=== PATIENT | female | born 2000 | race Caucasian/White ===

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

== ENCOUNTER 2020-06-26 09:59 | Emergency (ER) | payer MEDICAID ==
[2020-06-26 10:35] LABS: BASOPHILS % (AUTO) 0.4 %; EOSINOPHILS # (AUTO) 0.1 10^3/uL (0.0-0.7); HGB - HEMOGLOBIN 14.6 g/dL (12.0-16.0); LYMPHOCYTES # (AUTO) 2.2 10^3/uL (1.5-3.5); LYMPHOCYTES % (AUTO) 27.3 %; MEAN CORPUSCULAR HEMOGLOBIN 29.2 pg (27.0-31.0); MEAN CORPUSCULAR HGB CONC 33.3 g/dL (32.0-36.0); MEAN CORPUSCULAR VOLUME 87.8 fL (81.0-99.0); MEAN PLATELET VOLUME 9.9 fL (7.9-10.8); MONOCYTES # (AUTO) 0.5 10^3/uL (0.0-1.0); MONOCYTES % (AUTO) 6.2 %; NEUTROPHILS # (AUTO) 5.3 10^3/uL (1.5-6.6); NEUTROPHILS % (AUTO) 64.9 %; PLT - PLATELET COUNT 283 10^3/uL (130-450); RED CELL DISTRIBUTION WIDTH 12.4 % (12.0-15.0); WHITE BLOOD COUNT 8.1 x10^3/uL (4.8-10.8)
[2020-06-26 10:42] LABS: BILIRUBIN,URINE NEGATIVE (NEGATIVE); GLUCOSE, URINE (UA) NEGATIVE (NEGATIVE); KETONES,URINE (UA) NEGATIVE (NEGATIVE); LEUKOCYTE ESTERASE, URINE NEGATIVE (NEGATIVE); NITRITE,URINE NEGATIVE (NEGATIVE); OCCULT BLOOD,URINE NEGATIVE (NEGATIVE); PROTEIN,URINE NEGATIVE (NEGATIVE); UROBILINOGEN,URINE 0.2 (NORMAL) E.U./dL (NORMAL)
[2020-06-26 10:44] LABS: ALBUMIN 4.4 g/dL (3.2-5.5); ALBUMIN/GLOBULIN RATIO 1.4 (1.0-2.2); BILIRUBIN,TOTAL 0.5 mg/dL (0.2-1.0); CALCIUM 9.2 mg/dL (8.5-10.3); CREATININE 0.7 mg/dL (0.4-1.0); TOTAL PROTEIN 7.6 g/dL (6.7-8.2)
[2020-06-26 10:46] LABS: HCG UR QUAL NEGATIVE
[2020-06-26 10:50] LABS: CLARITY,URINE CLEAR (CLEAR)
--- NOTE | 2020-06-26 11:01 | ED Physician Documentation ---
PD HPI ABD PAIN - Stated complaint Stated Complaint: LOW ABD PX - Chief complaint Chief Complaint: Abd Pain - History obtained from History obtained from: Patient - History of Present Illness Timing - onset: How many days ago (3) Timing - duration: Days (3) Timing - details: Gradual onset, Still present, Waxing and waning Pain level now: 5 Quality: Cramping, Aching, Sharp Location: RLQ Radiation: Right flank Improved by: Laying still Worsened by: Eating, Moving, Position, Palpation Associated symptoms: Nausea, Diarrhea, Loss of appetite. No: Vomiting Similar symptoms before: Has not had sx before Recently seen: Not recently seen - Additional information Additional information: 19 y/o female with 3 days of right lower quadrant abdominal pain has not had fever. She has had nausea without vomiting and she has had about 3 days of diarrhea as well. She has a reduced appetite. Review of Systems Constitutional: denies: Fever Eyes: denies: Decreased vision Ears: denies: Ear pain Nose: denies: Congestion Throat: denies: Oral lesions / sores, Sore throat Cardiac: denies: Chest pain / pressure, Palpitations Respiratory: denies: Dyspnea, Cough GI: reports: Abdominal Pain, Nausea, Diarrhea. denies: Vomiting : denies: Dysuria, Frequency PD PAST MEDICAL HISTORY - Past Medical History Psych: Depression, Anxiety, Post traumatic stress disorder - Past Surgical History Past Surgical History: No - Present Medications Home Medications: Ambulatory Orders Medication Instructions Recorded Confirmed traMADol [Ultram] 50 - 100 mg PO Q6H PRN #20 tab 06/26/20 - Allergies Allergies/Adverse Reactions: Allergies Allergy/AdvReac Type Severity Reaction Status Date / Time No Known Drug Allergies Allergy Verified 06/26/20 10:05 - Social History Does the pt smoke?: No Smoking Status: Never smoker Does the pt drink ETOH?: No Does the pt have substance abuse?: No - Immunizations Immunizations are current?: Yes - POLST Patient has POLST: No PD ED PE NORMAL - Vitals Vital signs reviewed: Yes (Normal) - General General: Alert and oriented X 3, No acute distress, Well developed/nourished - HEENT HEENT: Atraumatic, PERRL, EOMI - Neck Neck: Supple, no meningeal sign, No bony TTP - Cardiac Cardiac: RRR, No murmur - Respiratory Respiratory: No respiratory distress, Clear bilaterally - Abdomen Abdomen: Normal bowel sounds, Soft, Other (There is specific tenderness in the right lower quadrant with some guarding there is some rebound tenderness referred to the right lower quadrant as well. There is not tenderness to bimanual palpation of the right kidney LUQ is nontender she does have some referred tenderness to the RLQ ) - Back Back: No CVA TTP, No spinal TTP - Derm Derm: Normal color, Warm and dry, No rash - Extremities Extremities: No deformity, No edema - Neuro Neuro: Alert and oriented X 3, care transport nurse 2-12 intact, No motor deficit, No sensory deficit, Normal speech Eye Opening: Spontaneous Motor: Obeys Commands Verbal: Oriented GCS Score: 15 - Psych Psych: Normal mood, Normal affect Results - Vitals Vitals: Vital Signs - 24 hr 06/26/20 06/26/20 06/26/20 10:06 10:25 10:31 Temperature 36.5 C Heart Rate 97 93 76 Respiratory 20 18 16 Rate Blood Pressure 125/65 144/84 H 144/84 H O2 Saturation 99 100 100 06/26/20 06/26/20 13:27 13:30 Temperature Heart Rate 83 Respiratory 18 Rate Blood Pressure 158/93 H 131/88 H O2 Saturation 99 Oxygen O2 Source Room air - Labs Labs: Laboratory Tests 06/26/20 06/26/20 06/26/20 10:15 10:22 10:22 WBC 8.1 RBC 5.00 Hgb 14.6 Hct 43.9 MCV 87.8 MCH 29.2 MCHC 33.3 RDW 12.4 Plt Count 283 MPV 9.9 Neut # (Auto) 5.3 Lymph # (Auto) 2.2 [place] # (Auto) 0.5 Eos # (Auto) 0.1 Baso # (Auto) 0.0 Absolute Nucleated RBC 0.00 Nucleated RBC % 0.0 Sodium 141 Potassium 3.7 Chloride 105 Carbon Dioxide 26 Anion Gap 10.0 BUN 13 Creatinine 0.7 Estimated GFR (MDRD) 108 Glucose 93 Calcium 9.2 Total Bilirubin 0.5 AST 18 ALT 19 Alkaline Phosphatase 74 Total Protein 7.6 Albumin 4.4 Globulin 3.2 Albumin/Globulin Ratio 1.4 Lipase 42 Urine Color YELLOW Urine Clarity CLEAR Urine pH 7.0 Ur Specific Becker 1.015 Urine Protein NEGATIVE Urine Glucose (UA) NEGATIVE Urine Ketones NEGATIVE Urine Occult Blood NEGATIVE Urine Nitrite NEGATIVE Urine Bilirubin NEGATIVE Urine Urobilinogen 0.2 (NORMAL) Ur Leukocyte Esterase NEGATIVE Ur Microscopic Review NOT INDICATED Urine Culture Comments NOT INDICATED Urine HCG, Qual NEGATIVE - Rads (name of study) CT ab/pel with Radiology: Prelim report reviewed (Impression: 1. Appendix is normal. 2. Right ovary is mildly prominent relative to the left. Enlargement can be associated with ovarian torsion. If there is clinical concern for right ovarian torsion, pelvic ultrasound should be considered for further evaluation. ), Final report received (3. Prominent right lower quadrant mesenteric lymph nodes which do not meet pathologic size criteria. Findings nonspecific, but in appropriate clinical setting can represent mesenteric adenitis.), EMP read indepedently, See rad report PD MEDICAL DECISION MAKING - ED course Complexity details: reviewed old records, reviewed results, re-evaluated patient, considered differential, d/w patient ED course: 19-year-old female with acute right lower quadrant abdominal pain has tenderness on examination she has normal white blood cell count she is afebrile CT scan does not demonstrate evidence of appendicitis. There is concern for the ovary on the right side and an ultrasound of this is obtained demonstrating a collapsing right ovarian cyst with some free fluid in the pelvis. Her pain is attributed to ruptured ovarian cyst. She is administered Toradol intravenously as well as a liter of fluid following her IV contrast study. Departure - Departure Disposition: 01 Home, Self Care Clinical Impression: Cyst of ovary Qualifiers: Laterality: right Qualified Code(s): N83.201 - Unspecified ovarian cyst, right side Condition: Stable Instructions: ED Cyst Ovarian Follow-Up: Ilda Rosas MD [Primary Care Provider] - Ilda Tijerina MD [Provider Admit Priv/Credential] - Prescriptions: traMADol [Ultram] 50 - 100 mg PO Q6H PRN #20 tab PRN Reason: Pain
[2020-06-26] MEDS ORDERED: IOVERSOL 320 100 ML VIAL IVP ONE ×2 (11:11→12:00)
--- NOTE | 2020-06-26 12:03 | CT Report ---
PROCEDURE: Abdomen/Pelvis W INDICATIONS: RLQ pain CONTRAST: IV CONTRAST: Optiray 320 ml: 100 PO CONTRAST: *NO PO CONTRAST TECHNIQUE: After the administration of intravenous contrast, 5 mm thick sections acquired from the diaphragms to the symphysis. 5 mm thick coronal and sagittal reformats were acquired. For radiation dose reducti on, the following was used: automated exposure control, adjustment of mA and/or kV according to michael ent size. COMPARISON: None. FINDINGS: Image quality: Excellent. ABDOMEN: Lung bases: Lung bases are clear. Heart size is normal. Solid organs: Liver and spleen are normal in size and enhancement. Gallbladder is normal Biliary s ystem is non dilated. Pancreas enhances normally. No adrenal nodules. Kidneys demonstrate normal s ize and enhancement, without hydronephrosis. Peritoneum and bowel: Bowel loops demonstrate normal wall thickness and caliber. Small amount of fr ee fluid in the cul-de-sac the pelvis which is within physiologic limits. No free air. Appendix is no rmal Nodes and vessels: No retroperitoneal or mesenteric adenopathy by size criteria. Prominent right low er quadrant mesenteric lymph nodes are noted which do not meet pathologic size criteria. Aorta and in ferior vena cava are normal in size. Miscellaneous: No ventral hernias. PELVIS: Genitourinary: Bladder wall thickness is normal. Intrauterine device is centrally positioned within the uterus. Right adnexa is prominent relative to the left measuring 5.77 cm in maximum diameter. Miscellaneous: No inguinal hernias or adenopathy. Bones: No suspicious bony lesions. No vertebral body compression fractures. IMPRESSION: 1. Appendix is normal. 2. Right ovary is mildly prominent relative to the left. Enlargement can be associated with ovarian t orsion. If there is clinical concern for right ovarian torsion, pelvic ultrasound should be considere d for further evaluation. 3. Prominent right lower quadrant mesenteric lymph nodes which do not meet pathologic size criteria. Findings nonspecific, but in appropriate clinical setting can represent mesenteric adenitis. Reviewed by: Danielle Thomas MD, PhD on 06/26/2020 12:02 PM PST Approved by: Danielle Thomas MD, PhD on 06/26/2020 12:02 PM PST Station ID: [id number]
[2020-06-26 13:31] VITALS: BP 131/88
[2020-06-26] MEDS ORDERED: SODIUM CHLORIDE 0.9% 1,000 ML IV STA (13:40)
[2020-06-26] MEDS ORDERED: KETOROLAC 30 MG/ML VIAL IVP STA (13:40)
--- NOTE | 2020-06-26 13:59 | Ultrasound Report ---
PROCEDURE: Pelvic w/Doppler Limited INDICATIONS: RLQ pain TECHNIQUE: Real-time transabdominal scanning was performed of the pelvic organs, with image documentation. COMPARISON: None. FINDINGS: Uterus: Uterus is normal in size at 4.2 x 5.3 x 8.4 cm. Endometrium measures 3 mm in combined thick ness. Ovaries: 3.1 x 3.3 x 5.0. There is a right ovarian hemorrhagic cyst measuring up to 2 cm which demon strates very low-level internal echoes and is likely collapsing/resolving. The left ovary measures 2. 3 x 2.2 x 4.2 cm and is unremarkable. Other: Small volume free pelvic fluid. IMPRESSION: Suspected collapsing hemorrhagic cyst in the right ovary measuring 2 cm. Repeat study in 4-6 weeks recommended to document resolution. Reviewed by: Jersey Azar MD on 06/26/2020 12:57 PM [facility] Approved by: Jersey Azar MD on 06/26/2020 12:57 PM [facility] Station ID: [id number]
== END 2020-06-26 14:37 | disposition home or self-care (01) ==
LOC: ED 09:59
DX: N83.201 Unspecified ovarian cyst, right side (principal)
CPT/HCPCS: 36415; 74177; 76856; 80053; 81003; 81025; 83690; 85025; 93976; 96374; 99284; Q9967; 81001; 87086

== ENCOUNTER 2021-06-07 21:05 | Emergency (ER) | payer MEDICAID ==
[2021-06-07 21:13] VITALS: BP 147/86
--- NOTE | 2021-06-07 21:41 | ED Physician Documentation ---
History of Present Illness - Stated complaint Stated Complaint: RT JAW PX - Chief complaint Chief Complaint: Heent - Additonal information Additional information: 20-year-old female presents emergency department for evaluation of sudden onset pain just below her right mandible with mild swelling. Began after eating pizza. She denies that she has any tooth pain. No fevers, no dysphonia, no difficulty swallow. No history of similar in the past. She took ibuprofen at home which is markedly improved the pain. She reports that most of the swelling that she had seems to have subsided. Review of Systems Constitutional: reports: Reviewed and negative Ears: reports: Reviewed and negative Nose: reports: Rhinorrhea / runny nose Throat: reports: Other (Swelling and pain under the right mandible). denies: Dental pain / toothache, Oral lesions / sores, Sore throat, Swollen tonsils Cardiac: reports: Reviewed and negative Respiratory: reports: Reviewed and negative GI: reports: Reviewed and negative : reports: Reviewed and negative PD PAST MEDICAL HISTORY - Past Medical History Past Medical History: Yes Cardiovascular: Hypertension Psych: Depression, Anxiety, Post traumatic stress disorder - Past Surgical History Past Surgical History: No - Present Medications Home Medications: Ambulatory Orders Medication Instructions Recorded Confirmed Amox/Clav 875/125 [Augmentin] 1 each PO Q12H #14 tablet 06/07/21 Propranolol [Inderal] 40 mg PO 06/07/21 traZODone [Desyrel] 50 mg PO ONCE 06/07/21 06/07/21 - Allergies Allergies/Adverse Reactions: Allergies Allergy/AdvReac Type Severity Reaction Status Date / Time sertraline Allergy Anxiety Verified 06/07/21 21:16 - Social History Does the pt smoke?: No Smoking Status: Never smoker Does the pt drink ETOH?: No Does the pt have substance abuse?: Yes Substance Use and Type: Marijuana - Immunizations Immunizations are current?: Yes - POLST Patient has POLST: No PD ED PE EXPANDED - General General: Alert, No acute distress, Well developed/nourished - HEENT HEENT: PERRL, Moist mucous membranes, Pharynx normal. No: Pharyngeal erythema, Swollen tonsils, Tonsillar exudate, Soft palate petecchiae - Neck Neck: Other (Mild tenderness with palpation under the right mandible. No lymphadenopathy noted no swelling no erythema. Mild pain with palpation of Pushpa's duct. No obvious stone seen). No: Soft tissue TTP Results - Vitals Vitals: Vital Signs - 24 hr 06/07/21 21:07 Temperature 36.9 C Heart Rate 105 H Respiratory 18 Rate Blood Pressure 147/86 H O2 Saturation 99 Oxygen O2 Source Room air PD MEDICAL DECISION MAKING - ED course Complexity details: considered differential, d/w patient ED course: 20-year-old female presents emergency department for evaluation of sudden onset pain under the right mandible with mild swelling. Occurred after eating pizza. Improved after taking Tylenol. On presentation here she does have some pain with palpation under the mandible but there is no swelling. No lymphadenopathy. I suspect that this is most likely a sialolithiasis. Given improvement with minimal treatment, lack of swelling at this time or fevers I do not suspect that she has siladenitis. Will defer imaging at this time. Patient is advised to suck on sour candies over the next 24 to 48 hours. She can continue the ibupro fen. If symptoms are not improving, she develops any fever has a return of swelling then she will fill the prescription for the Augmentin that was handed to her. Patient is advised to return to the ER for fevers swelling that does not improve with the treatment as above, difficulty swallowing or speaking or severe facial swelling. Departure - Departure Disposition: Home, Self Care Clinical Impression: Sialolithiasis of submandibular gland Condition: Stable Record reviewed to determine appropriate education?: Yes Instructions: ED Sublingual Gland Obstruction Prescriptions: Amox/Clav 875/125 [Augmentin] 1 each PO Q12H #14 tablet Comments: You are seen in the emergency department for sudden pain in your right lower jaw below your mandible. As we discussed at the bedside I suspect that what you have is a salivary stone that has gotten obstructed in your gland. Most of the time these past with gentle massage under your jaw. Sucking on sour candy can help. I do not think that there is an infection at this time. I would like you to continue the ibuprofen at home. Suck on sour candy 2 or 3 times a day. If despite this you have persistent pain, have a return of swelling or develop any fevers then please fill the prescription for the Augmentin and begin taking. If despite this symptoms do worsen, You lose the ability to speak normally, cannot swallow normally or have severe swelling or fever then please return immediately to the ER and at that time we will consider doing a CT scan.
== END 2021-06-07 21:45 | disposition home or self-care (01) ==
LOC: ED 21:05
DX: K11.5 Sialolithiasis (principal); I10 Essential (primary) hypertension
CPT/HCPCS: 99282

== ENCOUNTER 2022-03-20 11:14 | Outpatient (CLI) | payer MEDICAID ==
[2022-03-20 11:36] LABS: BASOPHILS % (AUTO) 0.3 %; EOSINOPHILS % (AUTO) 0.3 %; HCT - HEMATOCRIT 38.4 % (37.0-47.0); HGB - HEMOGLOBIN 12.7 g/dL (12.0-16.0); LYMPHOCYTES # (AUTO) 1.7 10^3/uL (1.5-3.5); LYMPHOCYTES % (AUTO) 16.5 %; MEAN CORPUSCULAR HEMOGLOBIN 28.4 pg (27.0-31.0); MEAN CORPUSCULAR HGB CONC 33.1 g/dL (32.0-36.0); MEAN CORPUSCULAR VOLUME 85.9 fL (81.0-99.0); MEAN PLATELET VOLUME 9.9 fL (7.9-10.8); MONOCYTES # (AUTO) 0.6 10^3/uL (0.0-1.0); MONOCYTES % (AUTO) 5.4 %; NEUTROPHILS % (AUTO) 77.1 %; PLT - PLATELET COUNT 253 10^3/uL (130-450); RED BLOOD COUNT 4.47 10^6/uL (4.20-5.40); RED CELL DISTRIBUTION WIDTH 12.5 % (12.0-15.0); WHITE BLOOD COUNT 10.4 x10^3/uL (4.8-10.8)
[2022-03-20 13:10] LABS: ESTIMATED AVERAGE GLUCOSE 103 mg/dL (70-100); HEMOGLOBIN A1c% 5.2 % (4.27-6.07)
[2022-03-21 03:08] LABS: HBsAG SCREEN Negative (Negative); HCV AB <0.1 s/co ratio (0.0-0.9); HIV SCREEN 4TH GENERATION Non Reactive (Non Reactive)
[2022-03-21 06:07] LABS: RPR Non Reactive (Non Reactive)
[2022-03-21 11:10] LABS: VARICELLA-ZOSTER AB IGG 526 index (Immune >165)
== END 2022-03-20 11:15 | disposition home or self-care (01) ==
LOC: LAB 11:14
PROVIDERS: ATTEND Nurse Practitioner Obstetrics & Gynecology
DX: Z36.89 Encounter for other specified antenatal screening (principal); O99.211 Obesity complicating pregnancy, first trimester
CPT/HCPCS: 36415; 81220; 83036; 85025; 86592; 86762; 86787; 86803; 86850; 86900; 86901; 87340; 87389

== ENCOUNTER 2022-05-05 06:30 | Outpatient (CLI) | payer MEDICAID ==
--- NOTE | 2022-05-05 10:36 | Ultrasound Report ---
PROCEDURE: OB Detailed Eval INDICATIONS: SUPERVISION OF OUTSIDE/PRIOR DATING DATA: Last menstrual period (LMP): 12/16/2021. LMP-based estimated date of delivery (OLGA): 09/22/2022. First dating scan (date and location): 03/07/[address] Eugene. Estimated date of delivery (OLGA) from first dating scan: 09/22/2022. The below data below was generated using the working OLGA of 09/22/2022 TECHNIQUE: Real-time scanning was performed of the fetus, with image documentation and biometric measurements. Endovaginal scanning: Not performed COMPARISON: None. FINDINGS: General: A single living intrauterine gestation is present. Presentation: Breech Placenta: Placental position is posterior. The lower margin of the placenta is approximately 1.3 cm from the internal cervical os. Amniotic fluid index: 15.8 cm, normal for gestational age. Single deepest vertical fluid pocket: 5.7 cm. heart rate: 141 beats per minute. Maternal cervical canal: 5.5 cm long; normal length is 2.5 cm or more. biometrics: Biparietal diameter: 4.3 cm, 18 weeks 6 days Head circumference: 16.3 cm, 19 weeks 0 days Abdominal circumference: 13.7 cm, 19 weeks 1 day Femur length: 2.9 cm, 19 weeks 0 days Estimated gestational age from initial scan: 20 weeks 0 days Composite gestational age from present scan: 19 weeks 0 days Estimated weight and percentile: 272 g, 8th percentile for gestational age Measurement variability in biometric dating: +/- 10 days from 12-20 weeks gestation, +/- 2 weeks from 20-30 weeks gestation, +/- 3 weeks at 30 weeks gestation or later. Anatomic survey: Neuro: Ventricles are normal at less than 10 mm. Cisterna magna is normal at 3-11 mm. Cerebellum i s normal in size and morphology. Nuchal skin fold: Normal at less than 6 mm between 14 and 20 weeks gestational age. Face: Nose and lips, facial profile are normal. Spine: No evidence for spina bifida. Heart: 4-chambered heart and ventricular outflow tracts are not well visualized due to positio tirso. Diaphragm: Diaphragm is intact. Stomach: Left-sided stomach is present. Kidneys: No hydronephrosis. Normal is less than 5 mm in 2nd trimester, less than 7 mm in 3rd trimester. Cord: 3 vessel cord has orthotopic insertion. Bladder: Normal in size. Extremities: All 4 extremities are visualized. IMPRESSION: 1.Single live intrauterine . 2.Estimated weight is 272 g, 8th percentile for clinical gestational age. 3.Low-lying placenta, with inferior placental margin approximately 1.3 cm from the internal cervical os. 4. heart and ventricular outflow tracts are not well visualized. Recommend follow-up exam. 5.Otherwise, anatomic survey is within normal limits. Reviewed by: Cornel Nielsen MD on 05/05/2022 10:35 AM PST Approved by: Cornel Nielsen MD on 05/05/2022 10:35 AM PST Station ID: [id number]
== END 2022-05-05 06:31 | disposition home or self-care (01) ==
LOC: DI 06:30
PROVIDERS: ATTEND Nurse Practitioner Obstetrics & Gynecology
DX: O44.42 Low lying placenta NOS or without hemorrhage, second trimester (principal); Z3A.19 19 weeks gestation of pregnancy; Z36.89 Encounter for other specified antenatal screening

== ENCOUNTER 2022-05-08 09:44 | Outpatient (CLI) | payer MEDICAID ==
--- NOTE | 2022-05-08 12:03 | Ultrasound Report ---
PROCEDURE: OB F/U or Repeat INDICATIONS: SUPERVISION OF OUTSIDE/PRIOR DATING DATA: Last menstrual period (LMP): 12/16/2021. LMP-based estimated date of delivery (OLGA): 09/22/2022. First dating scan (date and location): 03/07/2022. Estimated date of delivery (OLGA) from first dating scan: 09/22/2022. The below data below was generated using the ultrasound OLGA of 09/22/2022 TECHNIQUE: Real-time scanning was performed of the fetus, with image documentation and biometric measurements. COMPARISON: None. FINDINGS: General: A single living intrauterine gestation is present. Presentation: Transverse variable Placenta: Placental position is posterior, without previa. Amniotic fluid index: 13.8 cm, 44.7% tile for gestational age. heart rate: 152 beats per minute. Maternal cervical canal: 3.7 cm long; normal length is 2.5 cm or more. anatomy survey. Neuro: Previously normal Nuchal skin fold: Previously normal. Face: Previously normal. Spine: Previously normal. Heart: 4 chambered heart is present, with normal ventricular outflow tracts. Diaphragm: Diaphragm is intact. Stomach: Left-sided stomach is present. Kidneys: No hydronephrosis. Normal is less than 4 mm in second trimester, less than 7 mm in thi rd trimester. Cord: Previously normal. Bladder: Normal in size. Lower extremities: Previously normal IMPRESSION: 1. Estimated gestational age 20 weeks 3 days by initial ultrasound. 2. Low-lying placenta. 3. Completion of anatomy demonstrating normal anatomy. Reviewed by: Sulaiman Huerta on 05/08/2022 12:01 PM [facility] Approved by: Sulaiman Huerta on 05/08/2022 12:01 PM PST Station ID: [id number]
== END 2022-05-08 09:45 | disposition home or self-care (01) ==
LOC: DI 09:44
PROVIDERS: ATTEND Nurse Practitioner Obstetrics & Gynecology
DX: O44.42 Low lying placenta NOS or without hemorrhage, second trimester (principal); Z3A.20 20 weeks gestation of pregnancy; Z36.89 Encounter for other specified antenatal screening

== ENCOUNTER 2022-05-13 14:35 | Emergency (ER) | payer MEDICAID ==
--- NOTE | 2022-05-13 15:09 | ED Physician Documentation ---
History of Present Illness - Stated complaint Stated Complaint: RT FLANK PX/HIGH BP - Chief complaint Chief Complaint: General - History obtained from History obtained from: Patient - Additonal information Additional information: 21-year-old G2, P1 with history of nongestational hypertension. She had no care with the first but no problems otherwise with the first . Now she is at 21 weeks, and the current is complicated by IUGR and borderline previa so is being referred to [place] for further care. She presents with 3 days of right greater than left side body swelling, arm and leg sparing the face and right breast pain but no chest pain. She denies cramping, bleeding, or fluid loss. She does have shortness of breath with this. No fevers or chills. Review of Systems Ten Systems: 10 systems reviewed and negative Constitutional: denies: Fever, Chills Cardiac: denies: Chest pain / pressure, Palpitations Respiratory: reports: Dyspnea. denies: Cough PD PAST MEDICAL HISTORY - Past Medical History Cardiovascular: Hypertension Psych: Depression, Anxiety, Post traumatic stress disorder - Past Surgical History Past Surgical History: No - Present Medications Home Medications: Ambulatory Orders Medication Instructions Recorded Confirmed Pnv No.95/Ferrous Fum/Folic AC 1 each PO DAILY 05/13/22 05/13/22 [ Tablet] - Allergies Allergies/Adverse Reactions: Allergies Allergy/AdvReac Type Severity Reaction Status Date / Time sertraline Allergy Anxiety Verified 05/13/22 14:40 - Social History Does the pt smoke?: No Smoking Status: Never smoker Does the pt drink ETOH?: No Does the pt have substance abuse?: Yes - Immunizations Immunizations are current?: Yes - POLST Patient has POLST: No PD ED PE NORMAL - Vitals Vital signs reviewed: Yes - General General: Alert and oriented X 3, No acute distress - HEENT HEENT: PERRL, EOMI - Neck Neck: Supple, no meningeal sign, No bony TTP - Cardiac Cardiac: RRR, No murmur - Respiratory Respiratory: No respiratory distress, Clear bilaterally - Abdomen Abdomen: Normal bowel sounds, Soft, Non tender - Female Female : Other (Bedside ultrasound shows single live intrauterine with heart rate of 152) - Back Back: No CVA TTP, No spinal TTP - Derm Derm: Normal color, Warm and dry - Extremities Extremities: No calf tenderness / cord, Other (4 cm below the tibial plateau her right leg measures 27 cm in circumference, 26 on the left. Breast exam done with Rudy the nurse with fibrocystic changes but no infection or tenderness.) - Neuro Neuro: Alert and oriented X 3, No motor deficit, No sensory deficit, Normal speech Eye Opening: Spontaneous Motor: Obeys Commands Verbal: Oriented GCS Score: 15 - Psych Psych: Normal mood, Normal affect Results - Vitals Vitals: Vital Signs - 24 hr 05/13/22 14:41 Temperature 36.7 C Heart Rate 76 Respiratory 20 Rate Blood Pressure 129/72 O2 Saturation 98 Oxygen O2 Source Room air - EKG (time done) 1508 Rate: Rate (enter#) (76) Rhythm: NSR [place]: Normal Intervals: Normal [place] QRS: Normal Ischemia: Q waves (Q3 T3). No: ST elevation c/w ischemia - Labs Labs: Laboratory Tests 05/13/22 05/13/22 05/13/22 15:14 15:14 15:14 WBC 12.9 H RBC 4.17 L Hgb 12.0 Hct 36.1 L MCV 86.6 MCH 28.8 MCHC 33.2 RDW 12.7 Plt Count 229 MPV 10.0 Neut # (Auto) 10.3 H Lymph # (Auto) 2.0 [place] # (Auto) 0.5 Eos # (Auto) 0.0 Baso # (Auto) 0.0 Absolute Nucleated RBC 0.00 Nucleated RBC % 0.0 D-Dimer Sodium 136 Potassium 3.4 L Chloride 104 Carbon Dioxide 21 Anion Gap 11.0 BUN 7 Creatinine 0.6 Estimated GFR (MDRD) 126 Glucose 79 Calcium 8.5 Total Bilirubin 0.3 AST 15 ALT 15 Alkaline Phosphatase 60 B-Natriuretic Peptide 80 Total Protein 7.1 Albumin 3.3 Globulin 3.8 Albumin/Globulin Ratio 0.9 L Urine Color Urine Clarity Urine pH Ur Specific [place] Urine Protein Urine Glucose (UA) Urine Ketones Urine Occult Blood Urine Nitrite Urine Bilirubin Urine Urobilinogen Ur Leukocyte Esterase Ur Microscopic Review Urine Culture Comments 05/13/22 05/13/22 15:14 15:18 WBC RBC Hgb Hct MCV MCH MCHC RDW Plt Count MPV Neut # (Auto) Lymph # (Auto) [place] # (Auto) Eos # (Auto) Baso # (Auto) Absolute Nucleated RBC Nucleated RBC % D-Dimer < 200.0 L Sodium Potassium Chloride Carbon Dioxide Anion Gap BUN Creatinine Estimated GFR (MDRD) Glucose Calcium Total Bilirubin AST ALT Alkaline Phosphatase B-Natriuretic Peptide Total Protein Albumin Globulin Albumin/Globulin Ratio Urine Color YELLOW Urine Clarity CLEAR Urine pH 6.0 Ur Specific [place] 1.025 Urine Protein NEGATIVE Urine Glucose (UA) NEGATIVE Urine Ketones NEGATIVE Urine Occult Blood NEGATIVE Urine Nitrite NEGATIVE Urine Bilirubin NEGATIVE Urine Urobilinogen 0.2 (NORMAL) Ur Leukocyte Esterase NEGATIVE Ur Microscopic Review NOT INDICATED Urine Culture Comments NOT INDICATED PD Medical Decision Making - ED course ED course: 21-year-old at 21 weeks gestation presents with edema predominantly right- sided. It is associate with some shortness of breath but no chest pain but she does have breast pain. Exam discussed with Dr. Desouza, on-call OB shortly after initial evaluation who agrees with evaluation for DVT and CHF. He subsequently reconsulted a friend of his who is a MFM specialist who felt it was most likely that she had just been laying/sleeping on one side too much. Departure - Departure Disposition: 01 Home, Self Care Clinical Impression: Pedal edema, Breast pain Qualifiers: Weeks of gestation: 21 weeks Qualified Code(s): Z3A.21 - 21 weeks gestation of Condition: Good Record reviewed to determine appropriate education?: Yes Instructions: ED Preg Established Normal Sxs Comments: The cause of your symptoms is unclear but likely related to sleeping on one side more than the other. We did test to rule out congestive heart failure, blood clots, kidney failure, these were all negative. Call your doctor to arrange a follow-up appointment, make the next available appointment. In the interim, return anytime if worse or if new symptoms develop.
[2022-05-13 15:19] LABS: BASOPHILS % (AUTO) 0.2 %; EOSINOPHILS % (AUTO) 0.3 %; HCT - HEMATOCRIT 36.1 % (37.0-47.0); LYMPHOCYTES % (AUTO) 15.8 %; MEAN CORPUSCULAR HEMOGLOBIN 28.8 pg (27.0-31.0); MEAN CORPUSCULAR HGB CONC 33.2 g/dL (32.0-36.0); MEAN CORPUSCULAR VOLUME 86.6 fL (81.0-99.0); MONOCYTES # (AUTO) 0.5 10^3/uL (0.0-1.0); MONOCYTES % (AUTO) 3.6 %; NEUTROPHILS # (AUTO) 10.3 10^3/uL (1.5-6.6); NEUTROPHILS % (AUTO) 79.7 %; PLT - PLATELET COUNT 229 10^3/uL (130-450); RED BLOOD COUNT 4.17 10^6/uL (4.20-5.40); RED CELL DISTRIBUTION WIDTH 12.7 % (12.0-15.0); WHITE BLOOD COUNT 12.9 x10^3/uL (4.8-10.8)
[2022-05-13 15:34] LABS: ALBUMIN 3.3 g/dL (3.2-5.5); ALBUMIN/GLOBULIN RATIO 0.9 (1.0-2.2); BILIRUBIN,TOTAL 0.3 mg/dL (0.2-1.0); CALCIUM 8.5 mg/dL (8.5-10.3); CREATININE 0.6 mg/dL (0.4-1.0); POTASSIUM 3.4 mmol/L (3.5-5.0); TOTAL PROTEIN 7.1 g/dL (6.7-8.2)
[2022-05-13 16:10] LABS: BILIRUBIN,URINE NEGATIVE (NEGATIVE); GLUCOSE, URINE (UA) NEGATIVE (NEGATIVE); KETONES,URINE (UA) NEGATIVE (NEGATIVE); LEUKOCYTE ESTERASE, URINE NEGATIVE (NEGATIVE); NITRITE,URINE NEGATIVE (NEGATIVE); OCCULT BLOOD,URINE NEGATIVE (NEGATIVE); PROTEIN,URINE NEGATIVE (NEGATIVE); UROBILINOGEN,URINE 0.2 (NORMAL) E.U./dL (NORMAL)
[2022-05-13 16:11] LABS: CLARITY,URINE CLEAR (CLEAR)
--- NOTE | 2022-05-13 16:18 | Ultrasound Report ---
PROCEDURE: Duplex Ext Veins Left INDICATIONS: RLE swelling TECHNIQUE: Real-time imaging, as well as color and pulse Doppler interrogation, were performed of the lower extr emity deep veins from the inguinal ligament to the popliteal fossa. COMPARISON: None. FINDINGS: The deep veins are normally compressible, and free of intraluminal thrombus. Color and pu lse Doppler demonstrate normal phasic intraluminal flow. There is normal augmentation response to di stal compression maneuver. IMPRESSION: No evidence of deep vein thrombosis involving the right lower extremity. Reviewed by: Danielle Thomas MD, PhD on 05/13/2022 4:17 PM PST Approved by: Danielle Thomas MD, PhD on 05/13/2022 4:17 PM PST Station ID: [id number]
[2022-05-13 16:30] VITALS: BP 129/80
== END 2022-05-13 16:36 | disposition home or self-care (01) ==
LOC: ED 14:35
DX: O12.02 Gestational edema, second trimester (principal); O92.29 Other disorders of breast associated with pregnancy and the puerperium; Z3A.21 21 weeks gestation of pregnancy
CPT/HCPCS: 36415; 80053; 81001; 81003; 83880; 85025; 85379; 87086; 93005; 99284

== ENCOUNTER 2022-07-10 17:49 | Outpatient (CLI) | payer MEDICAID ==
[2022-07-10 18:20] VITALS: BP 117/61
[2022-07-10] MEDS ORDERED: SIMETHICONE CHEW 80 MG TABLET PO ONE (18:40)
--- NOTE | 2022-07-11 12:56 | PROVIDER PROGRESS NOTE ---
- HPI Chief Complaint: GI symptoms Current : Current EDU 09/22/22 Gestation 29 Weeks and 3 Days 2 Para 1 Vital Signs Temperature 36.7 C 07/10/22 18:03 Heart Rate 80 07/10/22 18:03 Respiratory Rate 16 07/10/22 18:03 Blood Pressure 117/61 07/10/22 18:03 Temperature 36.7 C 07/10/22 18:19 Heart Rate 80 07/10/22 18:19 Respiratory Rate 16 07/10/22 18:19 Blood Pressure 117/61 07/10/22 18:19 O2 Saturation 99 07/10/22 18:19 If not protocol: Oxygen Flow, liters/minute - Procedures OB Procedure Performed: NST Diagnosis/Indication for NST: labor NST Procedure: NST Procedure Start Date 07/10/22 Start Time 18:10 Stop Time 18:53 Vibroacoustic Stimulation Used No Patient States Movement Yes - Plan Plan: HPI: Franck presents today WHFBP with c/o lower abdominal and back pain that radiates to her front. She states the pain is constant although does fluctuate in intensity. She rates pain 6-9/10 on a pain scale. She reports feeling slightly constipated for the past 24-36 hours and states the pain started when she was straining with a bowel movement yesterday. She denies vaginal bleeding or leakage of fluid and states the pain does not feel like contractions. She reports +FM. She denies fever. She denies exposure to anyone acutely ill. She has not attempted to take anything to relieve her pain. She was sent home from work early today and intended to go home and rest but her mom encouraged her to present for evaluation. Vital signs WNL. FHR baseline 140s, moderate variability, + accels, no decels No contractions appreciated via tocometry Heart RRR w/o M/G/R, lungs CTAB. Abdomen gravid, soft, nontender. Palpated uterus while pt experiencing discomfort and it remained soft. Bilateral LE's no edema. Mood is good. She is laughing and talking with nursing staff and her mom throughout her stay. Semethicone given and pt symptoms improved. Encouraged increased fluid intake and rest. Encouraged initiating of mirilax PRN. Pt released home with precautions. She verbalized understanding and agrees to above plan. She denies further questions or concerns at this time. FINAL DIAGNOSIS: Constipation
== END 2022-07-10 18:57 | disposition home or self-care (01) ==
LOC: WFO 17:49 → FBP 17:56 → WFO 18:57
PROVIDERS: ATTEND Nurse Practitioner Obstetrics & Gynecology
DX: O99.613 Diseases of the digestive system complicating pregnancy, third trimester (principal); K59.00 Constipation, unspecified; Z3A.29 29 weeks gestation of pregnancy
CPT/HCPCS: 59025; 99213; A9270; 82731

== ENCOUNTER 2022-09-24 20:15 | Inpatient (IN) | payer MEDICAID ==
[2022-09-24 20:54] LABS: RUPTURE OF MEMBRANES PLUS POSITIVE (NEGATIVE)
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
[2022-09-24] MEDS ORDERED: hydrALAZINE INJ 20 MG/ML VIAL IVP PRN ×2 (21:55)
[2022-09-24] MEDS ORDERED: lidocaine 1% 20 ML MDV ID PRN (21:55)
[2022-09-24] MEDS ORDERED: METHYLERGONOVINE 0.2 MG/ML VIAL IM PRN (21:55)
[2022-09-24] MEDS ORDERED: NIFEdipine 10 MG CAPSULE PO PRN (21:55)
[2022-09-24] MEDS ORDERED: OXYTOCIN 10 UNIT/ML VIAL IM PRN (21:55)
[2022-09-24] MEDS ORDERED: miSOPROStoL 200 MCG TABLET BC PRN (21:55)
[2022-09-24] MEDS ORDERED: CARBOPROST TROMETHAMINE 250 MCG/ML AMP IM PRN (21:55)
[2022-09-24] MEDS ORDERED: SODIUM CHLORIDE FLUSH 0.9% 10 ML SYRINGE IVP PRN (21:55)
[2022-09-24] MEDS ORDERED: LABETALOL 20 MG/4 ML SYRINGE IVP PRN ×3 (21:55)
[2022-09-24] MEDS ORDERED: LACTATED RINGERS 500 ML IV PRN (21:55)
[2022-09-24] MEDS ORDERED: TRANEXAMIC ACID IN NACL 1,000 MG/100 ML BAG IV PRN (21:55)
[2022-09-24] MEDS ORDERED: OXYTOCIN/SODIUM CHLORIDE 500 ML IV PRN (21:55)
[2022-09-24] MEDS ORDERED: miSOPROStoL 200 MCG TABLET PR PRN (21:55)
[2022-09-24 22:06] LABS: BASOPHILS % (AUTO) 0.2 %; EOSINOPHILS % (AUTO) 0.3 %; HCT - HEMATOCRIT 36.8 % (37.0-47.0); HGB - HEMOGLOBIN 12.6 g/dL (12.0-16.0); LYMPHOCYTES # (AUTO) 1.6 10^3/uL (1.5-3.5); LYMPHOCYTES % (AUTO) 15.5 %; MEAN CORPUSCULAR HEMOGLOBIN 29.2 pg (27.0-31.0); MEAN CORPUSCULAR HGB CONC 34.2 g/dL (32.0-36.0); MEAN CORPUSCULAR VOLUME 85.2 fL (81.0-99.0); MEAN PLATELET VOLUME 11.1 fL (7.9-10.8); MONOCYTES # (AUTO) 0.6 10^3/uL (0.0-1.0); MONOCYTES % (AUTO) 5.8 %; NEUTROPHILS # (AUTO) 8.1 10^3/uL (1.5-6.6); NEUTROPHILS % (AUTO) 77.9 %; PLT - PLATELET COUNT 225 10^3/uL (130-450); RED BLOOD COUNT 4.32 10^6/uL (4.20-5.40); RED CELL DISTRIBUTION WIDTH 12.7 % (12.0-15.0); WHITE BLOOD COUNT 10.4 x10^3/uL (4.8-10.8)
[2022-09-24] MEDS ORDERED: LACTATED RINGERS 1,000 ML ONE (22:11)
[2022-09-24] MEDS: OXYTOCIN/SODIUM CHLORIDE 500 ML IV SCH (22:25)
[2022-09-24] MEDS: LACTATED RINGERS 1,000 ML IV SCH (22:34)
[2022-09-24] MEDS: SODIUM CHLORIDE FLUSH 0.9% 10 ML SYRINGE IVP SCH (22:34)
[2022-09-25] MEDS: fentaNYL 100 MCG/2 ML VIAL IVP PRN ×2 (04:52→05:55)
[2022-09-25] MEDS: LACTATED RINGERS 1,000 ML IV SCH ×2 (06:10→16:36)
--- NOTE | 2022-09-25 07:09 | PROVIDER PROGRESS NOTE ---
Labor Progress Note - Uterine Monitoring Uterine Monitoring Mode: positive: External toco Contraction Frequency (min/apart): 3 Contraction Intensity: positive: Moderate Uterine Resting Tone: positive: Soft - Monitoring Monitor Mode: positive: External ultrasound Heart Rate Baseline: 130 Heart Rate Variability: positive: Moderate (6-25 bmp) Accelerations: positive: Present, 15x15 Decelerations: positive: Early, Variable, Intermittent (<50% x20 min) Strip Review: positive: Category II - Vaginal Exam Dilation (in cm): 4 Effacement (%): 90 Station: 0 Cervical Position: Midposition - Labor Progress Note Labor Progress Note/Additional Text: S: Breathing through contractions and coping well. Her mom and partner's mom are supportive at the bedside. O: FHR baseline 130s, moderate variability, + accels, intermittent early decelerations and occasional variable decelerations Contractions palpate moderate every3 minutes with soft resting tone SVE 4/90/0, midposition. Pitocin at 3mU/mL A: 22yo @ 40.3wks gestation by LMP c/w 11.4wk U/S Active labor PROM FHR Category II - overall reassuring GBS neg P: Continuous monitoring. Continue pitocin for labor augmentation with titration per protocol. Encouraged ambulation and position changes. Anticipate .
[2022-09-25] MEDS ORDERED: ONDANSETRON 4 MG/2 ML VIAL IVP PRN (08:11)
[2022-09-25] MEDS ORDERED: HYDROCORTISONE 1% CREAM 28 GM TUBE PR PRN (09:07)
[2022-09-25] MEDS ORDERED: WITCH HAZEL/GLYCERIN 1 PAD TOP PRN (09:07)
--- NOTE | 2022-09-25 09:17 | DELIVERY NOTE ---
Delivery Note - Labor Labor: positive: Augmented by oxytocin - Delivery Method Delivery Method: positive: Spontaneous vaginal delivery - Presentation Presentation: positive: Vertex, MOHSEN - left occiput anterior - Nuchal Cord Nuchal Cord: positive: None - Amniotic Fluid Description Amniotic Fluid Description: positive: Clear - Episiotomy Type Episiotomy Type: positive: None - Laceration Laceration: positive: None - Delivery Outcome Delivery Outcome: positive: Livebirth - [place]: positive: Placed in direct skin contact with mother, Stimulated, Warmed, [place] used sex: positive: Female - Cord Cord: positive: 3 vessels - Placenta Placenta: positive: Intact, Spontaneous - Estimated Blood Loss Estimated Blood Loss (in cc): 200 - Post Delivery Events Post Delivery Events: positive: No post delivery events - Delivery Comments (Free Text/Narrative) Delivery Comments (Free Text/Narrative): Labor: This 22yo @ 40.3wks gestation by LMP c/w 11.4wk U/S presented to [facility] with rupture membranes. She was found to contract intermittently and SVe was 3/50/-2 and vertex. FHR pattern demonstrated a category I pattern with intermittent periods of Category II however overall remained reassuring. Pitocin was initiated for augmentation of labor with a maximum infusion rate of 3mU/mL. Normal labor course. She progressed to c/c/+2 at 0848. : Normal SVB of viable female on 09/25/2022 at 0852 in MOHSEN position. No nuchal cord. The was placed on maternal abdomen, stimulated, dried, and placed skin to skin. Apgars were 8/9 at 1 and 5 min respectively. Pitocin administered via IV for hemostasis. The umbililcal cord was allowed to stop pulsating at which time it was doubly clamped by CNM and cut by FOB. 3VC. Cord blood was obtained. Fundal massage and gentle cord traction applied for active management of the third stage. Placenta delivered spontaneously and intact at 0857. EBL 200mL. Fourth stage: Uterine fundus firm and there is no excessive bleeding. The perineum, vagina, and cervix were inspected and noted to be intact. Tissues well approximated. Skin to skin contact initiated. Both mother and baby were left in stable condition.
[2022-09-25] MEDS: ACETAMINOPHEN 500 MG TABLET PO SCH ×2 (10:27→18:07)
[2022-09-25] MEDS: IBUPROFEN 800 MG TABLET PO SCH ×3 (10:27→22:02)
[2022-09-25] MEDS: SODIUM CHLORIDE FLUSH 0.9% 10 ML SYRINGE IVP SCH ×2 (10:30→16:36)
[2022-09-25] MEDS: DOCUSATE SODIUM 100 MG CAPSULE PO SCH (22:02)
[2022-09-26] MEDS: ACETAMINOPHEN 500 MG TABLET PO SCH ×3 (03:33→10:24)
[2022-09-26] MEDS: IBUPROFEN 800 MG TABLET PO SCH ×2 (04:03→10:23)
[2022-09-26] MEDS: LACTATED RINGERS 1,000 ML IV SCH (07:25)
[2022-09-26] MEDS: OXYTOCIN/SODIUM CHLORIDE 500 ML IV SCH (07:26)
[2022-09-26 08:01] VITALS: BP 118/58
--- NOTE | 2022-09-26 08:23 | Discharge Plan ---
Discharge Plan Problem Reviewed?: Yes Disposition: Home, Self Care Condition: Good Diet: Regular Activity Restrictions: Activity as Tolerated Shower Restrictions: No Driving Restrictions: No Weight Bearing: Full Weight Instruction Topics: Vaginal After No Smoking: If you smoke, Please STOP! Call for help. Follow-up with: Ethel Eugene CNM, ARNP [Provider Admit Priv/Credential] -
--- NOTE | 2022-09-26 08:29 | DISCHARGE SUMMARY ---
Discharge Summary Condition at Discharge: Good Discharge Disposition: 01 Home, Self Care - HOSPITAL COURSE Hospital Course: Date of Admission: 09/24/2022 Date of Discharge: 09/26/2022 Diagnosis on Admission: 1. 22yo @ 40.2wks gestation by LMP c/w 11.4wk U/S 2. PROM 3. FHR Category I 4. GBS negative Diagnosis on Discharge: 1. 22yo PPD#1 s/p TSVB viable female 2. 3. Normal recovery Brief History: She is a patient of [facility] who presneted on 09/24/2022 with c/o vaginal leakage of clear fluid. She was found to be grossly ruptured with ROM+ positive and contract irregularly. She was admitted and pitocin was initiated for labor augmentation for a maximum infusion rate of 3mU/mL. She progressed to spontaneously deliver a viable female infant on 09/25/2022 at 0852 over intact perineum. Apgars were 8/9 at 1 and 5 minutes respectively. EBL 200mL. She has been doing well in her course. She is ambulating and to lerating a regular diet. She is urinating without difficulty and her lochia is normal. Her pain is well controlled with oral medications. She is bonding well with her baby and is without difficulty. She will be discharged home today on day #1 with instructions to continue taking her vitamin while and to continue taking ibuprofen and tylenol over the counter as needed for pain management. She has bilateral conjunctivitis and will also be given a prescription for antibiotic eye drops. She intends to follow up with myself at [facility] in 1 week for routine visit or sooner if needed. She has been given precautions to call if she has any worsening fevers, chills, abdominal pain, increased vaginal bleeding or foul smelling vaginal lochia. Physical exam: Normocephalic, atraumatic. Bilateral eye conjunctivitis. Heart RR R w/o M/G/R, lungs CTAB, abdomen gravid, soft, nontender with fundus firm at U, perineum intact, light lochia rubra, bilateral LE's trace edema. Mood is good. - ALLERGIES Allergies/Adverse Reactions: Allergies Allergy/AdvReac Type Severity Reaction Status Date / Time kiwi Allergy Severe Anaphylaxis Verified 09/24/22 20:50 tomás Allergy Severe Anaphylaxis Verified 09/24/22 20:48 sertraline Allergy Anxiety Verified 05/13/22 14:40 - MEDICATIONS Home Medications: Ambulatory Orders Medication Instructions Recorded Confirmed Pnv No.95/Ferrous Fum/Folic AC 1 each PO DAILY 05/13/22 05/13/22 [ Tablet] - LABS Result Diagrams: 09/24/22 21:20
[2022-09-26] MEDS: DOCUSATE SODIUM 100 MG CAPSULE PO SCH (10:24)
--- NOTE | 2022-09-26 13:42 | Labor Flowsheet ---
Labor Flowsheet Datetime Report Generated by CPN: 09/26/2022 13:41 Datetime: 09/26/2022 08:50 VITAL SIGNS NBP Sys/[place]/Mean (mmHg): 131 : 65 : 79 Pulse: 100 SpO2 (%): 100 Datetime: 09/25/2022 12:00 Stage of : Datetime: 09/25/2022 10:40 Membranes Ruptured Date/Time: 09/24/2022 17:47 Membranes Rupture Method: Spontaneous Amniotic Fluid Color: Clear Amniotic Fluid Odor: None Datetime: 09/25/2022 08:52 STAGE 2 Pushing: Urge to Push Pushing Position: Pushing Squatting; Pushing Standing Datetime: 09/25/2022 08:45 UTERINE ACTIVITY Monitor Mode: External Frequency (min): 2m Quality: Strong Duration (sec): 60-902 Pattern: Normal: <= 5 Contractions in 10 Minutes Resting Tone (Palpate): Relaxed Contraction Comments: approx. difficult to determine due to maternal position. rn and cnm at bedsid e. ASSESSMENT A Monitor Mode: External US Monitor Interventions for FHR: Ultrasound Adjusted FHR Baseline Rate : 140 FHR Baseline Changes: No Baseline Change Variability: Moderate 6-25 bpm Category: Category II Comments: broken tracing. rn and cnm at bedside. Patient Position/Activity: High Fowlers Patient Care Comments: patient sitting on toilet Datetime: 09/25/2022 08:15 Pain Type: Pressure Pain Location: Perineum Comfort Measures: Breathing/Relaxation; Coaching; Back Rub Given LaborFlag: Labor Datetime: 09/25/2022 08:01 VAGINAL EXAM Dilatation (cm): 6.0 Effacement (%): 100 Station: 0 Exam by: Ethel Valorie, CNM Datetime: 09/25/2022 08:00 Accelerations: 15X15 Decelerations: Late; Variable Datetime: 09/25/2022 07:39 Pain Coping: Crying Datetime: 09/25/2022 07:30 Actions for Decelerations: Provider Notified PATIENT CARE Oxygen Method: Room Air Datetime: 09/25/2022 07:13 COMMUNICATION Communication: Provider at Bedside Communication Comments: Ethel Valorie CNM Datetime: 09/25/2022 06:30 Pitocin Checklist: At Least 1 Acceleration of 15 bpm x 15 Seconds in 30 Minutes or Adequate Variabi lity; No More than 5 Uterine Contractions in 10 Minutes for any 20 Minute Interval; Uterus Palpates S oft between Contractions Datetime: 09/25/2022 05:59 Provider Notified (Name): A. Valorie, CNM Notification Reason: Status Update; Status; Labor Status; Pain Datetime: 09/25/2022 05:55 Medication Comments: Fentanyl 50mcg IV @ 0555 Datetime: 09/25/2022 05:51 Membrane Status: Ruptured Datetime: 09/25/2022 05:34 Respirations: 16 PAIN Pain Scale: 9 Datetime: 09/25/2022 04:08 Temperature (C): 36.7 Datetime: 09/25/2022 02:15 Temperature Route: Oral Datetime: 09/25/2022 01:50 MATERNAL ASSESSMENT Level of Consciousness: Alert Datetime: 09/25/2022 01:35 Monitor Interventions for UA: [place] Adjusted Datetime: 09/25/2022 00:37 MEDICATIONS Pitocin (milliunits): Increased to @
== END 2022-09-26 13:39 | disposition home or self-care (01) | DRG 806 ==
LOC: WFO 20:15 → FBP 20:18 → WFO 20:50 → FBP 20:50
PROVIDERS: ADMIT Nurse Practitioner Obstetrics & Gynecology; ATTEND Nurse Practitioner Obstetrics & Gynecology
PROC: 10E0XZZ Delivery of Products of Conception, External Approach (ICD-10-PCS; principal; 2022-09-25)
DX: O42.02 Full-term premature rupture of membranes, onset of labor within 24 hours of rupture (principal); O99.834 Other infection carrier state complicating childbirth; Z37.0 Single live birth; H10.9 Unspecified conjunctivitis; Z3A.40 40 weeks gestation of pregnancy; O99.344 Other mental disorders complicating childbirth; F41.9 Anxiety disorder, unspecified; Z62.810 Personal history of physical and sexual abuse in childhood; O76 Abnormality in fetal heart rate and rhythm complicating labor and delivery
CPT/HCPCS: 84112; 85025; 86850; 86900; 86901; 99215; A9270; J7120; 99213

== ENCOUNTER 2024-02-08 06:03 | Emergency (ER) | payer MEDICAID ==
--- NOTE | 2024-02-08 06:07 | ED Physician Documentation ---
PD HPI FEMALE - Stated complaint Stated Complaint: BLEEDING - History obtained from History obtained from: Patient - Additional information Additional information: 23-year-old G3, P2 at approximately 8 weeks gestational age per last menstrual period presents with episode of bleeding after urinating this morning. Patient has not had MANAGER RN CASE evaluation for this , she is scheduled for her first appointment in 5 days. Denies pain. Blood type O+ based on previous pregnancies. Review of Systems Constitutional: denies: Fever, Chills GI: denies: Abdominal Pain, Nausea, Vomiting, Constipation, Diarrhea : reports: Now EGA. denies: Dysuria, Frequency, Hesitancy, Unable to Void PD PAST MEDICAL HISTORY - Past Medical History Cardiovascular: Hypertension Psych: Depression, Anxiety, Post traumatic stress disorder - Past Surgical History Past Surgical History: No - Present Medications Home Medications: Ambulatory Orders Medication Instructions Recorded Confirmed No Known Home Medications 02/08/24 02/08/24 - Allergies Allergies/Adverse Reactions: Allergies Allergy/AdvReac Type Severity Reaction Status Date / Time kiwi Allergy Severe Anaphylaxis Verified 02/08/24 06:21 tomás Allergy Severe Anaphylaxis Verified 02/08/24 06:21 sertraline Allergy Anxiety Verified 02/08/24 06:21 - Social History Does the pt smoke?: No Smoking Status: Never smoker Does the pt drink ETOH?: No Does the pt have substance abuse?: Yes - Immunizations Immunizations are current?: Yes - POLST Patient has POLST: No PD ED PE NORMAL - Vitals Vital signs reviewed: Yes - General General: Alert and oriented X 3, No acute distress, Well developed/nourished - Cardiac Cardiac: RRR, Strong equal pulses - Respiratory Respiratory: No respiratory distress, Clear bilaterally - Abdomen Abdomen: Soft, Non tender, Non distended - Derm Derm: Normal color, Warm and dry, No rash - Neuro Neuro: Alert and oriented X 3, home care attendant 2-12 intact, No motor deficit, Normal speech Results - Vitals Vitals: Vital Signs - 24 hr 02/08/24 06:10 Temperature 36.5 C Heart Rate 80 Respiratory 16 Rate Blood Pressure 134/83 H O2 Saturation 100 Oxygen O2 Source Room air - Labs Labs: Laboratory Tests 02/08/24 06:47 Urine Color YELLOW Urine Clarity CLEAR Urine pH 6.5 Ur Specific [place] 1.025 Urine Protein NEGATIVE Urine Glucose (UA) NEGATIVE Urine Ketones NEGATIVE Urine Occult Blood LARGE H Urine Nitrite NEGATIVE Urine Bilirubin NEGATIVE Urine Urobilinogen 0.2 (NORMAL) Ur Leukocyte Esterase SMALL H Ur Microscopic Review INDICATED Urine Culture Comments Not Reportable Urine HCG, Qual POSITIVE PD Medical Decision Making - ED course Complexity details: reviewed results, re-evaluated patient, considered differential, d/w patient ED course: Vaginal bleeding in early . Blood type O positive. No established IUP for this . Blood work ordered. If confirmed then will order ultrasound for assessment. Care of patient to be signed to Dr. Silverman at 0700
[2024-02-08 06:50] LABS: BILIRUBIN,URINE NEGATIVE (NEGATIVE); GLUCOSE, URINE (UA) NEGATIVE (NEGATIVE); HCG UR QUAL POSITIVE; KETONES,URINE (UA) NEGATIVE (NEGATIVE); LEUKOCYTE ESTERASE, URINE SMALL (NEGATIVE); NITRITE,URINE NEGATIVE (NEGATIVE); OCCULT BLOOD,URINE LARGE (NEGATIVE); PH,URINE 6.5 PH (5.0-7.5); PROTEIN,URINE NEGATIVE (NEGATIVE); UROBILINOGEN,URINE 0.2 (NORMAL) E.U./dL (NORMAL)
[2024-02-08 06:51] LABS: CLARITY,URINE CLEAR (CLEAR)
[2024-02-08 06:56] LABS: BACTERIA,URINE Moderate /HPF (None Seen); SQUAMOUS EPITHELIAL CELL,UR MANY Squamous (<= Few)
[2024-02-08 07:03] LABS: ALBUMIN 3.9 g/dL (3.2-5.5); ALBUMIN/GLOBULIN RATIO 1.4 (1.0-2.2); BILIRUBIN,TOTAL 0.4 mg/dL (0.2-1.0); CREATININE 0.6 mg/dL (0.6-1.3); TOTAL PROTEIN 6.7 g/dL (6.4-8.9)
[2024-02-08 07:12] LABS: BASOPHILS % (AUTO) 0.5 %; EOSINOPHILS # (AUTO) 0.1 10^3/uL (0.0-0.7); HCT - HEMATOCRIT 42.1 % (37.0-47.0); HGB - HEMOGLOBIN 13.7 g/dL (12.0-16.0); LYMPHOCYTES # (AUTO) 1.9 10^3/uL (1.5-3.5); LYMPHOCYTES % (AUTO) 21.2 %; MEAN CORPUSCULAR HGB CONC 32.5 g/dL (32.0-36.0); MEAN CORPUSCULAR VOLUME 85.9 fL (81.0-99.0); MEAN PLATELET VOLUME 9.9 fL (7.9-10.8); MONOCYTES # (AUTO) 0.4 10^3/uL (0.0-1.0); MONOCYTES % (AUTO) 4.9 %; NEUTROPHILS # (AUTO) 6.4 10^3/uL (1.5-6.6); NEUTROPHILS % (AUTO) 72.1 %; PLT - PLATELET COUNT 256 10^3/uL (130-450); RED CELL DISTRIBUTION WIDTH 12.7 % (12.0-15.0); WHITE BLOOD COUNT 8.8 x10^3/uL (4.8-10.8)
[2024-02-08 07:43] VITALS: BP 132/73; O2SAT 99
--- NOTE | 2024-02-08 07:59 | ED Physician Documentation ---
ED Addendum - Addendum Addendum: 02/08/24 07:57 The patient had her labs come back showing a normal hemoglobin hematocrit. Urine was without any signs of obvious infection. Urine hCG was positive. The quantitative serum hCG was 63,000. I ordered a first trimester ultrasound which was performed and verbal report from the ultrasound technician is a viable intrauterine measuring 6 and half weeks with a heart rate in the 120s. No other abnormality seen. Had conveyed the findings to the patient. Answered questions for her and her mother. I conveyed that some bleeding in early is relatively common in the range of 20% or so that go on to normal full-term. Her abdomen is nontender at this point. She states she went to urinate shortly ago and there was no vaginal bleeding at this point. She does not feel lightheaded. Abdomen is soft and nontender. Disposition: Patient discharged home in stable condition. Diagnoses: 1. Early before 8 weeks 2. Vaginal bleeding in early
--- NOTE | 2024-02-08 08:08 | Ultrasound Report ---
PROCEDURE: OB 1st Trimester w/TV INDICATIONS: cramps/bleeding, early preg OUTSIDE/PRIOR DATING DATA: Last menstrual period (LMP): 12/18/2023. LMP-based estimated date of delivery (OLGA): 09/23/24. First dating scan (date and location): 02/08/2024. Estimated date of delivery (OLGA) from first dating scan: 10/03/2024. TECHNIQUE: Real-time scanning was performed of the fetus and maternal pelvic organs, with image documentation. Endovaginal scanning was also performed to better visualize the fetus and maternal ovaries. COMPARISON: None. FINDINGS: Intrauterine gestational sac present. Embryo: 0.34 cm, 6 weeks 0 days Heart rate: 120 bpm. Other: No perigestational fluid collection. Measurement variability in dating: +/- 4 weeks by LMP, +/- 7 days by mean sac diameter (use before 6 weeks gestation if crown-rump length not able to be measured), +/- 5 days by crown-rump length (6-12 weeks gestation). Maternal organs: Ovaries appear within normal limits. 1.8 x 1.5 x 2.1 cm left corpus luteum. IMPRESSION: 1. Early first trimester intrauterine with crown-rump length and heartbeat measuring 6 week s 0 days. Reviewed by: Xavier Key MD on 02/08/2024 8:06 AM PDT Approved by: Xavier Key MD on 02/08/2024 8:06 AM PDT Station ID: [id number]
== END 2024-02-08 08:02 | disposition home or self-care (01) ==
LOC: ED 06:03
DX: O20.9 Hemorrhage in early pregnancy, unspecified (principal); Z3A.08 8 weeks gestation of pregnancy
CPT/HCPCS: 36415; 80053; 81001; 81003; 81025; 84702; 85025; 87086; 99283; 99284

== ENCOUNTER 2024-09-20 07:53 | Inpatient (IN) ==
[2024-09-20 09:00] LABS: BASOPHILS % (AUTO) 0.2 %; EOSINOPHILS # (AUTO) 0.1 10^3/uL (0.0-0.7); EOSINOPHILS % (AUTO) 0.5 %; HCT - HEMATOCRIT 35.9 % (37.0-47.0); HGB - HEMOGLOBIN 12.1 g/dL (12.0-16.0); LYMPHOCYTES # (AUTO) 1.7 10^3/uL (1.5-3.5); MEAN CORPUSCULAR HEMOGLOBIN 29.6 pg (27.0-31.0); MEAN CORPUSCULAR HGB CONC 33.7 g/dL (32.0-36.0); MEAN CORPUSCULAR VOLUME 87.8 fL (81.0-99.0); MEAN PLATELET VOLUME 11.4 fL (7.9-10.8); MONOCYTES # (AUTO) 0.5 10^3/uL (0.0-1.0); MONOCYTES % (AUTO) 4.5 %; NEUTROPHILS # (AUTO) 8.7 10^3/uL (1.5-6.6); NEUTROPHILS % (AUTO) 79.2 %; PLT - PLATELET COUNT 203 10^3/uL (130-450); RED BLOOD COUNT 4.09 10^6/uL (4.20-5.40); RED CELL DISTRIBUTION WIDTH 13.3 % (12.0-15.0)
[2024-09-20] MEDS ORDERED: OXYTOCIN/SODIUM CHLORIDE 500 ML IV PRN ×2 (09:01→21:10)
[2024-09-20] MEDS ORDERED: LACTATED RINGERS 1,000 ML IV PRN (09:01)
[2024-09-20] MEDS ORDERED: lidocaine 1% 20 ML MDV ID PRN (09:01)
[2024-09-20] MEDS ORDERED: METHYLERGONOVINE 0.2 MG/ML VIAL IM PRN (09:01)
[2024-09-20] MEDS ORDERED: CARBOPROST TROMETHAMINE 250 MCG/ML VIAL IM PRN (09:01)
[2024-09-20] MEDS ORDERED: SODIUM CHLORIDE FLUSH 0.9% 10 ML SYRINGE IVP PRN (09:01)
[2024-09-20] MEDS ORDERED: miSOPROStoL 200 MCG TABLET BC PRN (09:01)
[2024-09-20] MEDS ORDERED: hydrALAZINE INJ 20 MG/ML VIAL IVP PRN ×2 (09:01)
[2024-09-20] MEDS ORDERED: LABETALOL 20 MG/4 ML SYRINGE IVP PRN ×3 (09:01)
[2024-09-20] MEDS ORDERED: TRANEXAMIC ACID IN NACL 1,000 MG/100 ML BAG IV PRN (09:01)
[2024-09-20] MEDS ORDERED: OXYTOCIN 10 UNIT/ML VIAL IM PRN (09:01)
[2024-09-20] MEDS ORDERED: NIFEdipine 10 MG CAPSULE PO PRN (09:01)
[2024-09-20 09:14] LABS: ALBUMIN 3.2 g/dL (3.2-5.5); ALBUMIN/GLOBULIN RATIO 1.1 (1.0-2.2); BILIRUBIN,TOTAL 0.4 mg/dL (0.2-1.0); CALCIUM 8.5 mg/dL (8.5-10.3); CREATININE 0.7 mg/dL (0.6-1.3); TOTAL PROTEIN 6.1 g/dL (6.4-8.9)
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
--- OUTSIDE RECORDS SUMMARY | 2024-09-20 09:20 | EXTERNAL MEDICAL SUMMARY RPT | Continuity of Care Document ---
Author Organization [facility] Address [address] [place] [address] Phone Problems date description facility 2024-06-30 04:40 Uterine size-date discrepancy, unspecified trimester [facility] 2024-06-30 13:07 Uterine size-date discrepancy, unspecified trimester [facility] 2024-06-30 13:13 Uterine size-date discrepancy, unspecified trimester [facility] 2024-06-30 13:16 Uterine size-date discrepancy, unspecified trimester [facility] 2024-08-02 13:42 Uterine size-date discrepancy, unspecified trimester [facility] 2024-08-02 14:06 Gestational edema, unspecified trimester [facility] 2024-08-02 14:09 Gestational edema, unspecified trimester [facility] 2024-08-02 14:09 Encounter for superv ision of other normal , second trimester [facility] 2024-08-02 14:09 Encounter for superv ision of normal , unspecified, unspecified trimester [facility] 2024-08-03 00:04 Gestational edema, unspecified trimester [facility] 2024-08-03 00:04 Encounter for superv ision of other normal , second trimester [facility] 2024-08-03 00:04 Encounter for superv ision of normal , unspecified, unspecified trimester [facility] 2024-08-04 10:24 Gestational edema, second trime ster [facility] 2024-08-07 08:16 Uterine size-date discrepancy, unspecified trimester [facility] 2024-08-07 08:17 Uterine size-date discrepancy, unspecified trimester [facility] 2024-08-07 11:51 Cough, unspecified [facility] 2024-08-07 11:51 Nausea with vomiting, unspecifi ed [facility] 2024-08-07 12:10 Cough, unspecified [facility] 2024-08-07 12:10 Nausea with vomiting, unspecifi ed [facility] 2024-08-08 08:42 Uterine size-date discrepancy, unspecified [facility] 2024-08-10 09:39 [facility], [facility] 2024-08-10 09:39 Other specified cough [facility] 2024-08-10 09:39 Cough, unspecified [facility] 2024-08-10 09:39 [facility]al [facility] 2024-08-10 09:39 Nausea with vomiting, unspecifi ed [facility] 2024-08-12 09:42 Uterine size-date discrepancy, unspecified trimester [facility] 2024-08-13 00:00 Uterine size-date discrepancy, unspecified [facility] 2024-08-15 09:22 Uterine size-date discrepancy, third trimester [facility] 2024-08-25 15:14 Other specified dise ases and conditions complicating [facility] 2024-08-30 21:37 Other specified dise ases and conditions complicating [facility] 2024-09-02 09:19 Encounter for screeni ng for Streptococcus B [facility] 2024-09-02 09:51 Abnormal levels of other serum enzymes [facility] 2024-09-02 09:51 Encounter for screeni ng for Streptococcus B [facility] 2024-09-02 09:54 Abnormal levels of other serum enzymes [facility] 10:02 Abnormal levels of other serum enzymes [facility] 2024-09-02 10:56 Encounter for screeni ng for Streptococcus B [facility] 2024-09-03 00:03 Abnormal levels of other serum enzymes [facility] 2024-09-03 00:03 Encounter for screeni ng for Streptococcus B [facility] 2024-09-09 06:15 Gestational edema, third trimes ter [facility] Results/Labs test date facility value unit notes Result panel 1 PROTEIN/CREATININE RATIO,URINE 2024-08-02 14:44 [facility] 0.1 (missing) (missing) BILIRUBIN,TOTAL 2024-08-02 14:44 [facility] 0.4 mg/dl As of November 2022 testing method has changed, this may include reference ranges. CREATININE 2024-08-02 14:44 [facility] 0.5 mg/dl As of November 2022 testing method has changed, this may include reference ranges. ALBUMIN/GLOBULIN RATIO 2024-08-02 14:44 [facility] 1.2 (missing) (missing) ALT ALANINE AMINOTRANSFERASE 2024-08-02 14:44 [facility] 10 iu/l As of November 2022 testing method has changed, this may include reference ranges. TOTAL PROTEIN,URINE TIMED 2024-08-02 14:44 [employer] [employer] 10 mg/dl As of November 2022 testing method has changed, this may include reference ranges. MEAN PLATELET VOLUME 2024-08-02 14:44 [facility] 10.2 fl (missing) CHLORIDE 2024-08-02 14:44 [facility] 105 mmol/l As of November 2022 testing method has changed, this may include reference ranges. AST ASPARTATE AMINOTRANSFERASE 2024-08-02 14:44 [facility] 11 iu/l As of November 2022 testing method has changed, this may include reference ranges. HGB - HEMOGLOBIN 2024-08-02 14:44 [facility] 12.0 g/dl (missing) RED CELL DISTRIBUTION WIDTH 2024-08-02 14:44 [facility] 12.9 % (missing) SODIUM 2024-08-02 14:44 [facility] 134 mmol/l As of November 2022 testing method has changed, this may include reference ranges. WHITE BLOOD COUNT 2024-08-02 14:44 [facility] 14.4 x10 3/ul (missing) GFR - MDRD 2024-08-02 14:44 [facility] 152 (missing) Social History date description facility
[2024-09-20] MEDS: CALCIUM CARBONATE CHEW 500 MG TABLET PO PRN (12:08)
[2024-09-20] MEDS: LACTATED RINGERS 1,000 ML IV PRN (12:43)
[2024-09-20] MEDS: OXYTOCIN/SODIUM CHLORIDE 500 ML IV SCH (12:43)
[2024-09-20] MEDS: ONDANSETRON 4 MG/2 ML VIAL IVP PRN (14:09)
[2024-09-20] MEDS: SODIUM CHLORIDE FLUSH 0.9% 10 ML SYRINGE IVP SCH (14:10)
--- NOTE | 2024-09-20 14:19 | PHARMACY PROGRESS NOTE ---
Best Possible Medication History Admit Date and Time: 09/20/24 [id number] Home Medications Medication Instructions Recorded Confirmed Type No Known Home Medications 09/20/24 09/20/24 History Processed by: Nursing (Nursing confirmed patient is not taking any medications at home) Medications reviewed in ED?: No Medication History completed: Yes Secondary Source(s): Insurance records [facility] Statement: As the person ultimately responsible for medication therapy, providers are able to order a medication from an existing home medication list in [facility] via the "Reconcile Routine" prior to Confirmation of that medication by user support analyst. Such practice is discouraged except when the physician, in their clinical judgment, deems that a medical need exists for a medication without regard to previous use.
--- NOTE | 2024-09-20 17:17 | PROVIDER PROGRESS NOTE ---
Labor Progress Note Labor Progress Note Labor Progress Note/Additional Text: S: Coping with contractions but states she is feeling discouraged by the lack of progress. She is breathing and moaning through contractions. Her partner and mom are supportive at the bedside. O: FHR baseline 140s, moderate variability. Contractions palpate strong every 2-4 minutes with soft resting tone SVE 5/80/-2, posterior. Vertex. AROM x 8hrs - continues to leak clear fluid Pitocin at 8mU/min Difficulty assessing heart rate and contraction pattern given patient body habitus and need to move for pain management purposes. Discussed d/c pitocin while she gets in the bath and pt agrees. A: 24yo @ 39.0wks gestation Active labor FHR Category I GBS negative P: Discontinue pitocin now. Pending reactive NST patient may enter [facility] for pain management. If labor does not continue to spontaneously progress, will reinitiate pitocin with titration per protocol once patient can be adequately monitored. Repeat SVE in 4 hrs or sooner PRN. Nitrous oxide PRN. Epidural per maternal request. Anticipate .
[2024-09-20] MEDS ORDERED: LIDOCAINE 2%-EPI 1:100000 20 ML MDV ONE (18:40)
[2024-09-20] MEDS ORDERED: ROPIVACAINE 0.2% 200 MG/100 ML BAG EP ONE (18:41)
[2024-09-20] MEDS ORDERED: ONDANSETRON 4 MG/2 ML VIAL IVP PRN (19:53)
[2024-09-20] MEDS ORDERED: ePHEDrine 50 MG/ML VIAL IVP PRN (19:53)
[2024-09-20] MEDS ORDERED: ROPIVACAINE 0.2% 200 MG/100 ML BAG EP PRN (19:53)
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
[2024-09-20] MEDS ORDERED: SIMETHICONE CHEW 80 MG TABLET PO PRN (21:10)
--- NOTE | 2024-09-20 21:15 | DELIVERY NOTE ---
Delivery Note Delivery Comments (Free Text/Narrative) Delivery Comments (Free Text/Narrative): Labor: This 24 year old @ 39.0 wks gestation by 10wk U/S presented to [facility] for elective induction of labor. Cervix was 4/80/-2 and vertex. FHR demonstrated Category I pattern with intermittent periods of Category II however overall remained reassuring throughout labor. AROM occurred at 0830 and was noted to be a moderate amount of clear fluid. Pitocin initiated for induction of labor with a maximum infusion rate of 8mU/min. Normal labor course. Epidural placed per maternal request. She progressed to c/c/+2 at 2029. : Normal SVB of viable female on 09/20/2024 @ 2046. Nucal cord x 2 was reduced. The was placed on maternal abdomen, stimulated, dried, and placed skin to skin. 's were 8/9 at 1 and 5 min respectively. Pitocin administered via IV for hemostasis. The umbilical cord was allowed to stop pulsating at which time it was doubly clamped by CNM and cut by FOB. Cord blood was obtained. 3VC. Fundal massage and gentle cord traction applied for active management of the third stage. Placenta delivered spontaneously and intact at 2058. QBL 300mL. Fourth stage: Uterine fundus firm and there is no excessive bleeding. The perineum, vagina, and cervix were inspected and found to be intact. Tissues well approximated. Family bonding well. Both mother and baby were left in stable condition.
[2024-09-20] MEDS: ACETAMINOPHEN 500 MG TABLET PO PRN (21:36)
[2024-09-21] MEDS: IBUPROFEN 800 MG TABLET PO PRN (00:14)
[2024-09-21] MEDS: WITCH HAZEL/GLYCERIN 1 PAD TOP PRN (00:30)
--- NOTE | 2024-09-21 08:28 | PROVIDER PROGRESS NOTE ---
Subjective Prog Note Date Prog Note Date: 09/21/24 Prog Note Time: 08:27 Subjective Subjective: Subjective: Patient reports she is doing well. Comfortable WITHOUT pain management Lochia appropriate. Denies heavy bleeding. Ambulating. Pelvic and abdominal pain well-controlled. Tolerating oral intake. Diet: Regular. Voiding without difficulty. Passing flatus. Denies BM. Patient is bonding with baby in room Breast feeding going well. Denies feeling lightheaded, dizzy or excessively fatigued. Objective General: Alert, oriented, no apparent distress. Cardiovascular: No edema. Lungs: No increased work of breathing. Abdomen: Uterus firm. Below umbilicus. No guarding or rebound tenderness. Extremities: No pain on palpation. Distal pulses intact. Assessment and Plan day 1. 24yo s/p 09/21/2024 following elective IOL, PPD#1 doing well - Routine - Anticipate discharge tomorrow Current Medications Current Medications Current Medications: Current Medications Generic Name Dose Route Start Last Admin Trade Name Freq PRN Reason Stop Dose Admin Acetaminophen 1,000 mg 09/20/24 21:10 09/21/24 05:30 Acetaminophen 500 Mg Tablet PO 1,000 mg Q8HR PRN Administration Mild Pain or Fever>38C(100.4F) Calcium Carbonate/Glycine 500 mg 09/20/24 11:42 09/20/24 12:08 Calcium Carbonate Chew 500 Mg Tablet PO 500 mg BID PRN Administration INDIGESTION Carboprost Tromethamine 250 mcg 09/20/24 09:01 Carboprost Tromethamine 250 Mcg/Ml Vial IM 09/25/24 09:01 Q15M PRN Step 4: Hemorrhage protocol Docusate Sodium 100 mg 09/21/24 09:00 Docusate Sodium 100 Mg Capsule PO BID EDUARDA Ephedrine Sulfate 5 mg 09/20/24 19:53 Ephedrine 50 Mg/Ml Vial IVP Q5M PRN For SBP<100;give until SBP>100 Hydralazine HCl 5 - 20 mg 09/20/24 09:01 Hydralazine Inj 20 Mg/Ml Vial IVP Q20M PRN SBP >160 or DBP >110 Protocol Hydralazine HCl 10 mg 09/20/24 09:01 Hydralazine Inj 20 Mg/Ml Vial IVP 09/25/24 09:02 .ONCE PRN Step 9 of Labetalol protocol Protocol Hydrocortisone 1 applic 09/20/24 21:10 Hydrocortisone 1% Cream 28 Gm Tube TOP QID PRN PERINEAL REPAIR Lactated Ringer's 1,000 mls @ 100 mls/hr 09/20/24 09:01 09/21/24 05:34 Lr IV 0 mls/hr .Q10H PRN Infusion Save for active labor Lactated Ringer's 1,000 mls @ 999 mls/hr 09/20/24 09:01 Lr IV 09/24/24 09:00 ONCE PRN distress Tranexamic Acid 1,000 mg in 100 mls @ 600 mls/hr 09/20/24 09:01 Tranexamic 1,000 Mg/100ml-Nacl IV 09/25/24 09:01 .ONCE PRN EBL >1200mL and within 3hr Ropivacaine 200 mg in 100 mls @ 0 mls/hr 09/20/24 19:53 Naropin 0.2% EP PRN PRN PAIN Protocol Per Protocol Oxytocin/Sodium Chloride 500 mls @ 999 mls/hr 09/20/24 21:10 Pitocin/Sodium Chloride IV PRN PRN POST- HEMORR PREVENTION Protocol 999 MILLIUNIT/MIN Ibuprofen 800 mg 09/20/24 21:10 09/21/24 00:14 Ibuprofen 800 Mg Tablet PO 800 mg Q8HR PRN Administration Moderate Pain (Level 4-6) Labetalol HCl 20 - 80 mg 09/20/24 09:01 Labetalol 20 Mg/4 Ml Syringe IVP Q10M PRN SBP >160 or DBP >110 Protocol Labetalol HCl 20 mg 09/20/24 09:01 Labetalol 20 Mg/4 Ml Syringe IVP 09/25/24 09:01 .ONCE PRN Step 9 of nifedipine protocol Protocol Labetalol HCl 40 mg 09/20/24 09:01 Labetalol 20 Mg/4 Ml Syringe IVP 09/25/24 09:02 .ONCE PRN Step 9 of hydrALAZine protocol Protocol Methylergonovine Maleate 0.2 mg 09/20/24 09:01 Methylergonovine 0.2 Mg/Ml Vial IM 09/25/24 09:01 .ONCE PRN Step 2: Hemorrhage protocol Misoprostol 800 mcg 09/20/24 09:01 Misoprostol 200 Mcg Tablet BC 09/25/24 09:01 .ONCE PRN Step 3: Hemorrhage protocol Nifedipine 10 - 20 mg 09/20/24 09:01 Nifedipine 10 Mg Capsule PO Q20M PRN SBP >160 or DBP >110 Protocol Ondansetron HCl 4 mg 09/20/24 19:53 Ondansetron 4 Mg/2 Ml Vial IVP Q6HR PRN Nausea / Vomiting Oxytocin 10 unit 09/20/24 09:01 Oxytocin 10 Unit/Ml Vial IM 09/25/24 09:01 .ONCE PRN Step one: If no IV access Simethicone 80 mg 09/20/24 21:10 Simethicone Chew 80 Mg Tablet PO TID PRN Gas Sodium Chloride 10 ml 09/20/24 09:01 Sodium Chloride Flush 0.9% 10 Ml Syringe IVP PRN PRN NEEDED PER PROVIDER ORDERS [place]/Glycerin 1 pad 09/20/24 21:10 09/21/24 00:30 [place]/Glycerin 1 Pad TOP 1 pad PRN PRN Administration PERINEAL REPAIR Objective Vital Signs/Intake & Output Vital Signs: Vital Signs x48h Temp Pulse Resp BP Pulse Ox 09/21/24 05:15 37.0 C 89 14 107/61 97 09/21/24 00:40 37.0 C 83 13 119/61 97 Intake & Output: Intake & Output 09/18/24 09/19/24 09/20/24 09/21/24 23:59 23:59 23:59 23:59 Intake Total 1500 / 1500 300 / 300 Output Total 400 / 400 100 / 100 Balance 1100 / 1100 200 / 200 Weight (kg) 271 lb 7.243 oz Lab Results 09/20/24 08:31 09/20/24 08:31 Other Labs: Lab Results x24hrs 09/20/24 Range/Units 08:31 WBC 11.0 H (4.8-10.8) x10^3/uL RBC 4.09 L (4.20-5.40) 10^6/uL Hgb 12.1 (12.0-16.0) g/dL Hct 35.9 L (37.0-47.0) % MCV 87.8 (81.0-99.0) fL MCH 29.6 (27.0-31.0) pg MCHC 33.7 (32.0-36.0) g/dL RDW 13.3 (12.0-15.0) % Plt Count 203 (130-450) 10^3/uL MPV 11.4 H (7.9-10.8) fL Neut # (Auto) 8.7 H (1.5-6.6) 10^3/uL Lymph # (Auto) 1.7 (1.5-3.5) 10^3/uL [place] # (Auto) 0.5 (0.0-1.0) 10^3/uL Eos # (Auto) 0.1 (0.0-0.7) 10^3/uL Baso # (Auto) 0.0 (0.0-0.1) 10^3/uL Absolute Nucleated RBC 0.00 x10^3/uL Nucleated RBC % 0.0 /100WBC Sodium 136 (135-145) mmol/L Potassium 4.0 (3.5-4.5) mmol/L Chloride 107 (101-111) mmol/L Carbon Dioxide 20 L (21-32) mmol/L Anion Gap 9.0 (6-13) BUN 11 (6-20) mg/dL Creatinine 0.7 (0.6-1.3) mg/dL Estimated GFR (MDRD) 103 (>89) Glucose 137 H (74-104) mg/dL Calcium 8.5 (8.5-10.3) mg/dL Total Bilirubin 0.4 (0.2-1.0) mg/dL AST 20 (10-42) IU/L ALT 31 (10-60) IU/L Alkaline Phosphatase 138 H (42-121) IU/L Total Protein 6.1 L (6.4-8.9) g/dL Albumin 3.2 (3.2-5.5) g/dL Globulin 2.9 (2.1-4.2) g/dL Albumin/Globulin Ratio 1.1 (1.0-2.2) Blood Type O POSITIVE Antibody Screen NEGATIVE
[2024-09-21] MEDS: DOCUSATE SODIUM 100 MG CAPSULE PO SCH (08:53)
[2024-09-21] MEDS: HYDROCORTISONE 1% CREAM 28 GM TUBE TOP PRN (08:54)
[2024-09-22 05:17] VITALS: O2SAT 98
--- NOTE | 2024-09-22 08:14 | Discharge Summary ---
Discharge Summary Admit Date: 09/20/24 Discharge Date: 09/22/24 HPI History of Present Illness: Diagnosis on admission: 1. 24 yo @ 39+0 weeks gestation 2. Elective IOL 3. Hx of preciptious 2nd stage. 4. GBS negative Diagnosis on Discharge 1. 24 yo 2. S/p 09/20/2024 3. Intact perineum 4. . Physical exam: Normocephalic, atraumatic Lungs no increased work of breathing Normal uterine involution, FF below umbilicus scant rubra bleeding perineal discomfort. Bilateral LE's 1+ edema Mood is good. This 24 year old @ 39.0 wks gestation by 10wk U/S presented to [facility] for elective induction of labor. Cervix was 4/80/-2 and vertex. FHR demonstrated Category I pattern with intermittent periods of Category II however overall remained reassuring throughout labor. AROM occurred at 0830 and was noted to be a moderate amount of clear fluid. Pitocin initiated for induction of labor with a maximum infusion rate of 8mU/min. Normal labor course. Epidural placed per maternal request. She progressed to c/c/+2 at 2029. : Normal SVB of viable female infant on 09/20/2024 @ 2046. Nucal cord x 2 was reduced. The was placed on maternal abdomen, stimulated, dried, and placed skin to skin. 's were 8/9 at 1 and 5 min respectively. Pitocin administered via IV for hemostasis. The umbilical cord was allowed to stop pulsating at which time it was doubly clamped by CNM and cut by FOB. Cord blood was obtained. 3VC. Fundal massage and gentle cord traction applied for active management of the third stage. Placenta delivered spontaneously and intact at 2058. QBL 300mL. Fourth stage: Uterine fundus firm and there is no excessive bleeding. The perineum, vagina, and cervix were inspected and found to be intact. Tissues well approximated. Family bonding well. Both mother and baby were left in stable condition She has been doing well in her course. She is ambulating and tolerating a regular diet. She is urinating without difficulty and her lochia is normal. Her pain is well controlled without narcotic management. She will be discharged to home today on day 2 and a prescription has been sent to [facility] for her for IBU, tylenol and stool softeners PRN. She intends to follow up with [facility] in 1 week for telehealth. Appointment made for 09/29/2024 @ 1230. She has been given precautions to call if she has any new or worsening sx such as fevers, chills, abdominal pain, increasing bleeding, or foul smelling vaginal lochia. preeclamptic precautions reviewed as well ALLERGIES Allergies Allergy/AdvReac Type Severity Reaction Status Date / Time kiwi Allergy Severe Anaphylaxis Verified 09/16/24 09:03 tomás Allergy Severe Anaphylaxis Verified 09/16/24 09:03 sertraline Allergy Anxiety Verified 09/16/24 09:03 MEDICATIONS Ambulatory Orders Medication Instructions Recorded Confirmed acetaminophen 650 mg 650 mg PO Q8H PRN fever or p ain 09/22/24 09/22/24 tablet,extended release (Tylenol 8 #20 tabs Hour) docusate sodium 250 mg capsule 250 mg PO BID #60 caps 09/22/24 09/22/24 ibuprofen 600 mg tablet (IBU) 600 mg PO Q6H PRN pain # 30 tabs 09/22/24 09/22/24 PHYSICAL EXAM AT DISCHARGE Vital Signs: Vital Signs x48h Temp Pulse Resp BP Pulse Ox 09/22/24 05:14 36.7 C 70 18 120/74 98 09/22/24 00:49 36.7 C 71 18 118/68 99 LABS 09/22/24 09:48 09/22/24 09:48 Discharge Plan Discharge Patient Disposition: 01 [facility], Self Care Medically Cleared Date:: 09/22/24 Prescriptions: Continued ibuprofen [IBU] 600 mg tablet 600 mg PO Q6H PRN (Reason: pain) Qty: 30 2RF acetaminophen [Tylenol 8 Hour] 650 mg tablet extended release 650 mg PO Q8H PRN (Reason: fever or pain) Qty: 20 2RF docusate sodium 250 mg capsule 250 mg PO BID Qty: 60 1RF Print Language: Greek Patient Instructions: Breastfeed Holds, Self Care
[2024-09-22 10:11] VITALS: BP 135/69; TEMP 98.6
[2024-09-22 10:18] LABS: BASOPHILS % (AUTO) 0.4 %; EOSINOPHILS # (AUTO) 0.1 10^3/uL (0.0-0.7); EOSINOPHILS % (AUTO) 1.4 %; HCT - HEMATOCRIT 34.2 % (37.0-47.0); HGB - HEMOGLOBIN 11.3 g/dL (12.0-16.0); LYMPHOCYTES # (AUTO) 1.7 10^3/uL (1.5-3.5); LYMPHOCYTES % (AUTO) 19.4 %; MEAN CORPUSCULAR HEMOGLOBIN 29.3 pg (27.0-31.0); MEAN CORPUSCULAR VOLUME 88.6 fL (81.0-99.0); MONOCYTES # (AUTO) 0.4 10^3/uL (0.0-1.0); MONOCYTES % (AUTO) 4.1 %; NEUTROPHILS # (AUTO) 6.3 10^3/uL (1.5-6.6); PLT - PLATELET COUNT 188 10^3/uL (130-450); RED BLOOD COUNT 3.86 10^6/uL (4.20-5.40); RED CELL DISTRIBUTION WIDTH 13.6 % (12.0-15.0); WHITE BLOOD COUNT 8.5 x10^3/uL (4.8-10.8)
[2024-09-22 10:34] LABS: ALBUMIN 3.1 g/dL (3.2-5.5); ALBUMIN/GLOBULIN RATIO 1.1 (1.0-2.2); BILIRUBIN,TOTAL 0.3 mg/dL (0.2-1.0); CALCIUM 8.2 mg/dL (8.5-10.3); CREATININE 0.6 mg/dL (0.6-1.3); POTASSIUM 3.8 mmol/L (3.5-4.5); TOTAL PROTEIN 5.8 g/dL (6.4-8.9)
--- NOTE | 2024-09-22 16:02 | Labor Flowsheet ---
Labor Flowsheet Datetime Report Generated by CPN: 09/22/2024 16:01 Datetime: 09/22/2024 08:47 VITAL SIGNS NBP Sys/[place]/Mean (mmHg): 135 : 69 : 81 Pulse: 80 Datetime: 09/20/2024 22:19 Membranes Ruptured Date/Time: 09/20/2024 08:38 Datetime: 09/20/2024 21:24 SpO2 (%): 98 Datetime: 09/20/2024 21:00 Stage of : Datetime: 09/20/2024 20:59 LaborFlag: Labor Datetime: 09/20/2024 20:47 TEACHING Pain Management: Epidural Datetime: 09/20/2024 20:44 STAGE 2 Pushing Progress: Descent with Pushing; Caput Noted; Presenting Part Visible Datetime: 09/20/2024 20:43 COMMUNICATION Communication: Provider at Bedside Datetime: 09/20/2024 20:36 I/O Interventions: Straight Cath (ml) @ 200 Datetime: 09/20/2024 20:30 UTERINE ACTIVITY Monitor Mode: External Frequency (min): 2-3 Quality: Moderate Duration (sec): 60-90 Pattern: Normal: <= 5 Contractions in 10 Minutes Resting Tone (Palpate): Relaxed ASSESSMENT A Monitor Mode: Telemetry FHR Baseline Rate : 135 Accelerations: 15X15 Comments: interrupted strip pattern Station: 1 Exam by: Namrata Mac RN Vaginal Exam Comments: complete Datetime: 09/20/2024 20:22 Patient Position/Activity: Semi-Fowlers Datetime: 09/20/2024 20:15 Variability: Moderate 6-25 bpm Decelerations: Variable Category: Category II Datetime: 09/20/2024 20:13 Amniotic Fluid Color: Clear Amniotic Fluid Amount: Moderate Datetime: 09/20/2024 20:10 Anesthesia Level Check: T10- Umbilicus Anesthesia Comments: Pt reports feeling the cold on left side knee and up Datetime: 09/20/2024 20:00 Contraction Comments: interrupted strip pattern d/t repositioning Patient Care Comments: repositioned pt, waiting for pt to be comfortable before restarting pit Datetime: 09/20/2024 19:20 ANESTHESIA Epidural Procedure: Completed Datetime: 09/20/2024 19:02 PROCEDURE TIME OUT Procedure Verify: Correct Patient Identity; Correct Side and Site are Marked; Accurate Procedure Consent Form; Agreement on Procedure to be Done; Correct Patient Position; Relevant Images and Results are Properly Labeled and Displayed; Safety Precautions Based on Patient History or Medication Use Datetime: 09/20/2024 18:52 PATIENT CARE IV/Blood Work: IV Bolus Started Datetime: 09/20/2024 18:00 Communication Comments: Patient requesting epidural at this time. Datetime: 09/20/2024 17:05 Provider Reviewed Strip: Yes Datetime: 09/20/2024 17:00 Monitor Interventions for FHR: Ultrasound Adjusted Datetime: 09/20/2024 16:22 VAGINAL EXAM Dilatation (cm): 5.0 Effacement (%): 80 Vaginal Bleeding: Normal Show Cervix, Position: Midposition Datetime: 09/20/2024 16:00 Monitor Interventions for UA: [place] Adjusted Pitocin Checklist: At Least 1 Acceleration of 15 bpm x 15 Seconds in 30 Minutes or Adequate Variability; No More than 1 Late Deceleration Occurred in Past 30 Minutes; No More than 2 Variable Decelerations > 60 Seconds in Duration and decreasing >60 bpm in 30 minutes; No More than 5 Uterine Contractions in 10 Minutes for any 20 Minute Interval; Uterus Palpates Soft between Contractions; IUPC Resting Tone less than 25 mmHg Datetime: 09/20/2024 14:20 PAIN Pain Presence: Intermittent Pain Type: Contraction Pain Relief Measures: Comfort Measures Pain Assessment Comments: Nitrous Oxide provided to patient. Patient educated on safe use. Datetime: 09/20/2024 14:09 Cervix, Consistency: Moderate Datetime: 09/20/2024 10:00 FHR Baseline Changes: No Baseline Change Datetime: 09/20/2024 08:38 Membrane Status: Ruptured Membranes Rupture Method: Artificial Amniotic Fluid Odor: None
== END 2024-09-22 13:00 | disposition home or self-care (01) | DRG 807 ==
LOC: WFO 07:53 → FBP 07:58
PROVIDERS: ADMIT Nurse Practitioner Obstetrics & Gynecology; ATTEND Nurse Practitioner Obstetrics & Gynecology
DX: O99.214 Obesity complicating childbirth; Z3A.39 39 weeks gestation of pregnancy; Z37.0 Single live birth; Z62.810 Personal history of physical and sexual abuse in childhood; O69.81X0 Labor and delivery complicated by cord around neck, without compression, not applicable or unspecified